=== PATIENT | male | born 1985 | race Caucasian/White ===

== ENCOUNTER 2021-10-16 10:16 | Emergency (ER) | payer OTHER, SELFPAY ==
[2021-10-16 10:35] VITALS: BP 142/93; PULSE 85; RESP 18; TEMP 36.9; O2SAT 98; BMI 29.9
--- NOTE | 2021-10-16 10:43 | DI.RAD.S_ITS ---
PROCEDURE: XR FOOT RT MIN 3V INDICATIONS: right lateral foot pain after stepping in a hole TECHNIQUE: 3 views of the foot were acquired. COMPARISON: None. FINDINGS: Bones: No fractures or dislocations. No suspicious bony lesions. Soft tissues: No tibiotalar joint effusion. Achilles tendon appears normal. IMPRESSION: No acute radiographic findings. If pain persists, followup imaging in 5-7 days is recommended to exclude occult fracture. Dictated by: Asia Moulton M.D. on 10/16/2021 at 11:08 Approved by: Asia Moulton M.D. on 10/16/2021 at 11:08
--- NOTE | 2021-10-16 10:51 | ED.LOWEXIN ---
HPI - Extremity Injury (Lower) General Chief Complaint: Extremity Injury, Lower Stated Complaint: Thinks sprained/Fractured foot Time Seen by Provider: 10/16/21 10:41 Source: patient Mode of arrival: Ambulatory History of Present Illness HPI Narrative: 35-year-old male smoker presents with a chief complaint of right foot pain since an injury last night. He had been in his normal state of health and was walking in the backyard and stepped in a hole which caused his right foot to invert. He denies pain and swelling over his lateral foot. He denies any pain in ankle, knee or hip. He denies numbness, tingling or weakness. The pain is worse with ambulation and weight-bearing and has improved with rest Review of Systems Review of Systems Narrative: GENERAL: Denies chills, fatigue, malaise, fever, sweats. HEENT: Denies sinus pain, ear pain, sore throat, difficulty swallowing, dizziness. RESPIRATORY: Denies dyspnea, cough, wheezing, hemoptysis, sputum. CARDIOVASCULAR: Denies chest pain, palpitations, orthopnea, edema, GASTROINTESTINAL: Denies nausea, vomiting, abdominal pain, diarrhea, constipation, melena. : Denies dysuria, frequency, incontinence, hematuria, urinary retention. MUSCULOSKELETAL: See HPI SKIN: Denies rash, skin lesions, or other NEUROLOGIC: Denies weakness, headache, numbness, change in speech, confusion, seizures, incoordination. PSYCHIATRIC: No concerning psychosocial issues. 12 point review of systems is negative except for those stated above Patient History Social History Smoking Status: Current every day smoker Smoking Status: Current every day smoker tobacco type: vaping alcohol intake frequency: a few times a week Substance Use Type: does not use Exam Narrative Exam Narrative: GEN: AOx3 and in mild distress EYES: Pupils are equal, round, and reactive to light and accommodation. Extraoccular muscles are intact bilaterally. There is no subconjunctival hemorrhage or exudate. CHEST: Lungs are clear to auscultation bilaterally and free of wheezes, rales, or rhonchi. Heart rate is regular rhythm, there are no murmurs, clicks, rubs, or gallops. There is no chest wall tenderness. ABD: Abdomen is soft and nontender. There is no guarding or rebound. Bowel sounds are normal in all 4 quadrants. There is no mass or organomegaly. EXT: Full painless range of motion at right hip, knee and ankle without obvious swelling or tenderness. There is moderate swelling, mild ecchymosis and tenderness to palpation over lateral foot. This is closed, isolated and neurovascularly intact SKIN: Warm, pink, and dry. No erythema or rash Initial Vital Signs Initial Vital Signs: Vital Signs Temperature 98.5 F 10/16/21 10:35 Pulse Rate 85 10/16/21 10:35 Respiratory Rate 18 10/16/21 10:35 Blood Pressure 142/93 H 10/16/21 10:35 Pulse Oximetry 98 10/16/21 10:35 Procedures Orthopedic Splinting/Casting Injury #1: Lower Extremity Injury Location: foot Lower Extremity Immobilizer: post-op shoe Post splinting neuro exam: intact Post splinting vascular exam: intact Placed by: Nursing Course Orders Ordered: ED Orders 10/16/21 10:43 XR foot RT min 3V Stat Vital Signs Vital signs: Vital Signs - 8 hr 10/16/21 10:35 Temperature 98.5 F Pulse Rate 85 Respiratory Rate 18 Blood Pressure 142/93 H Pulse Oximetry 98 MDM - Extremity Injury (Lower) Imaging Data Extremity x-ray #1: Radiologist's Impression: [place] [address] XRay Report Signed Patient: Nic Rose MR#: [id number] : 1985 Acct:[id number] Age/Sex: 35 / M Date of Service: 10/16/21 Loc: ED Accession Number: [id number] ?? Procedure: XR foot RT min 3V Ordering Provider: Dany Gutierrez D.O. PROCEDURE:? XR FOOT RT MIN 3V ? INDICATIONS:? right lateral foot pain after stepping in a hole ? TECHNIQUE:? 3 views of the foot were acquired.? ? COMPARISON:? None. ? FINDINGS:? ? Bones:? No fractures or dislocations.? No suspicious bony lesions.? ? Soft tissues:? No tibiotalar joint effusion.? Achilles tendon appears normal.? ? ? IMPRESSION:? No acute radiographic findings. If pain persists, followup imaging in 5-7 days is recommended to exclude occult fracture. ? ? Dictated by: Asia Moulton M.D. on 10/16/2021 at 11:08 ? ? Approved by: Asia Moulton M.D. on 10/16/2021 at 11:08 ? Discharge Plan Departure Patient Disposition: Home Clinical Impression: Foot sprain Instructions: Sprain Activity Restrictions/Additional Instructions: *You have been diagnosed with [right lateral foot sprain. As we discussed, your history, physical exam and x-rays are very reassuring and there is no indication of fracture or dislocation *What to do: *Please continue to take your regular medications as directed. [ ] New medication prescriptions sent to your pharmacy: [ ] [ ] New medication written as a paper prescription [ ] No new medications given *Please follow up with your primary care provider in 2-3 days, call for an appointment. Let them know you were seen in the Emergency Department and that we ask that you be seen in follow up. We will electronically transmit a record of today's note if your PCP is in our system *If you do not have a primary care provider please contact the [facility] Resource line at [phone]. They will ask some questions about your medical history and help get you set up with a doctor in the community. *Return to Emergency Department if you should have any new, worsening or concerning symptoms, such as [fever greater than 101 F, shaking chills, worsening pain, persistent vomiting or other bothersome symptoms]
== END 2021-10-16 11:20 | disposition home or self-care (01) ==
PROVIDERS: Emergency Provider Emergency Medicine
DX: S93.601A Unspecified sprain of right foot, initial encounter (principal); X50.1XXA Overexertion from prolonged static or awkward postures, initial encounter; Y93.01 Activity, walking, marching and hiking
CPT/HCPCS: 73630; 99281; 99283

== ENCOUNTER 2024-12-13 22:14 | Emergency (ER) | payer OTHER, SELFPAY ==
[2024-12-13 22:24] VITALS: BP 161/99; PULSE 70; RESP 17; TEMP 37.6; O2SAT 99; BMI 32.3
--- NOTE | 2024-12-13 22:32 | DI.RAD.S_ITS ---
PROCEDURE: XR FOOT LT MIN 3V INDICATIONS: dropped weight on foot, pain to 1st metatarsal and great toe TECHNIQUE: 3 views of the foot were acquired. COMPARISON: [facility], CR, XR FOOT RT MIN 3V, 10/16/2021, 10:36. FINDINGS: Bones: No fractures or dislocations. No suspicious bony lesions. Soft tissues: No tibiotalar joint effusion. Achilles tendon appears normal. IMPRESSION: No acute bony abnormality. Dictated by: Shaun Rollins M.D. on 12/13/2024 at 22:51 Approved by: Shaun Rollins M.D. on 12/13/2024 at 22:51
--- NOTE | 2024-12-13 23:54 | ED.LOWEXIN ---
HPI - Extremity Injury (Lower) General Chief Complaint: Extremity Injury, Lower Stated Complaint: injury left toe Time Seen by Provider: 12/13/24 23:48 Source: patient Mode of arrival: Wheelchair History of Present Illness HPI Narrative: Patient is a 39-year-old male with no endorse significant past medical history who dropped approximately 20 lb weight onto his left great toe while putting together a an umbrella, patient states that he has had difficulty walking since the incident due to pain in the toe mild bleeding noted at the time of injury now resolved. Patient did not sustain any other injuries at this time, states that he took Tylenol with minimal relief. Related Data Allergies Allergy/AdvReac Type Severity Reaction Status Date / Time No Known Drug Allergies Allergy Verified 12/13/24 22:31 Review of Systems Review of Systems ROS Unobtainable: All systems reviewed & are unremarkable except as noted in HPI and below Patient History tobacco type: vaping alcohol intake frequency: a few times a week Exam Narrative Exam Narrative: General: Alert, in no acute distress at time of exam. Skin: Good turgor, no rash, unusual bruising or prominent lesions. Head: Normocephalic, atraumatic. HEENT: Conjunctiva clear, EOM intact, PERRL, mucous membranes moist. Neck: Supple, normal ROM. Heart: Regular rate and rhythm, no murmur or gallop or rubs. Lungs: Clear to auscultation bilaterally. Abdomen: Soft, non-distended, Back: Spine normal without deformity or tenderness, no CVA tenderness. Extremities: No significant edema in bilateral lower extremities, warm and well-perfused extremities, palpable radial pulses bilaterally. Patient has warm well-perfused lower extremities as well, patient does have edema overlying the great toe on the left side with overlying abrasion and dried blood no obvious laceration. Patient has tenderness overlying the great toe but has intact sensation and movement. Neurologic: CN 2-12 normal. Normal sensation and motor exam. Psychiatric: Oriented X3, normal mood and affect. Initial Vital Signs Initial Vital Signs: Vital Signs Temperature 99.6 F 12/13/24 22:24 Pulse Rate 70 12/13/24 22:24 Respiratory Rate 17 12/13/24 22:24 Blood Pressure 161/99 H 12/13/24 22:24 Pulse Oximetry 99 12/13/24 22:24 Oxygen Delivery Method Room Air 12/13/24 22:24 Course Orders Ordered: ED Orders 12/13/24 22:32 XR foot LT min 3V Stat Vital Signs Vital signs: Vital Signs - 8 hr 12/13/24 22:24 Temperature 99.6 F Pulse Rate 70 Respiratory Rate 17 Blood Pressure 161/99 H Pulse Oximetry 99 Oxygen Delivery Method Room Air MDM - Extremity Injury (Lower) Differential Diagnosis Differential diagnosis: Likely ankle sprain and strain, puncture wound of foot and fracture of toe Condition is:: Improved Lab Data Labs: Imaging was considered but not warranted at this time Imaging Data Extremity x-ray #1: My Impression: No signs of significant dislocation or fracture Radiologist's Impression: PROCEDURE: XR FOOT LT MIN 3V INDICATIONS: dropped weight on foot, pain to 1st metatarsal and great toe TECHNIQUE: 3 views of the foot were acquired. COMPARISON: [facility], , XR FOOT RT MIN 3V, 10/16/2021, 10:36. FINDINGS: Bones: No fractures or dislocations. No suspicious bony lesions. Soft tissues: No tibiotalar joint effusion. Achilles tendon appears normal. IMPRESSION: No acute bony abnormality. [facility] Narrative Medical decision making narrative: Well-appearing 39-year-old male who presents after dropping a weight on his left foot difficulty ambulating since the incident due to pain, found to have x-ray that shows no signs of fracture, dislocation or significant abnormality. Patient able to ambulate without significant difficulty but avoids putting weight on his left great toe. Suspect likely bruising and ecchymosis but no signs of fracture no need for orthopedic evaluation at this time. Patient given instructions for conservative management at home including Tylenol, ibuprofen, ice elevation and instructed to see a orthopedic doctor or primary care doctor if no improvement after a week for repeat imaging. No other signs of trauma on exam patient to be discharged in stable condition at this time. Discharge Plan Departure Patient Disposition: Home Clinical Impression: Superficial bruising of foot Activity Restrictions/Additional Instructions: You were seen in the emergency department today unfortunately there was no fracture identified however you likely have bruising or a bone bruise in your left foot. This may stop you from fitting your foot into your boots were stopped you from engaging in significant physical activity until you begin to improve. It may take up to 2 weeks until you are feeling back to normal. Please have your employer modify your duty in order to accommodate for your recovery. Please continue with Tylenol, ibuprofen ice, rest and elevation. Return to the emergency department or your primary care doctor for repeat imaging if it does not appear to be improving Stand Alone Forms: Patient Portal/API/Survey
[2024-12-14 00:07] VITALS: BP 153/80; PULSE 83; RESP 16; O2SAT 99
== END 2024-12-14 00:12 | disposition home or self-care (01) ==
PROVIDERS: Emergency Provider Emergency Medicine
DX: S90.32XA Contusion of left foot, initial encounter (principal); W22.8XXA Striking against or struck by other objects, initial encounter
CPT/HCPCS: 73630; 99281; 99283